=== PATIENT | male | born 1980 | race American Indian/Alaskan Native ===

== ENCOUNTER 2017-10-18 17:27 | Emergency (ER) | payer OTHER ==
[2017-10-18 17:33] VITALS: BP 146/100
--- NOTE | 2017-10-18 19:53 | Emergency Department Report ---
Chief Complaint: Urogenital-Male Stated Complaint: PENILE DISCHARGE Time Seen by Provider: 10/18/17 19:41 - HPI History of Present Illness: Patient is a 37-year-old [place] male who is presenting with penile discharge. Patient states he's been present for 2 days. He has no scrotal swelling or fever nausea vomiting at this time - ROS Review of Systems: Review of systems is essentially normal - Exam Vital Signs: Vital Signs 10/18/17 17:31 Temperature 98.6 F Pulse Rate 101 H Respiratory 18 Rate Blood Pressure 146/100 O2 Sat by Pulse 100 Oximetry Physical Exam: Focused physical exam patient has abdomen is soft nontender patient is in no acute distress MSE screening note: Focused history and physical exam performed. Due to findings the following was ordered: ED Medical Decision Making - Medical Decision Making Patient will be screened outpatient was being referred to outpatient clinic for further treatment ED Disposition for MSE Clinical Impression: Urethritis Disposition: Z- MED SCREENING EXAM-LEFT Is pt being admited?: No Does the pt Need Aspirin: No Condition: Stable Referrals: MARINE NICHOLE MD [Primary Care Provider] - 3-5 Days Forms: STI Treatment and Prevention
[2017-10-18] MEDS ORDERED: FLAGYL PO ONE (20:05)
[2017-10-18] MEDS ORDERED: ZITHROMAX PO ONE (20:05)
[2017-10-18] MEDS ORDERED: ROCEPHIN IM ONE (20:06)
[2017-10-18] MEDS ORDERED: XYLOCAINE 1% MPF 5 mL INFILTRATI ONE (20:06)
== END 2017-10-18 20:20 | disposition home or self-care (01) ==
LOC: ED 17:27
DX: N34.2 Other urethritis (principal)
CPT/HCPCS: 96372; 99282; J0696